=== PATIENT | female | born 1960 | race Caucasian/White ===

== ENCOUNTER 2016-10-05 10:37 | Emergency (ER) | payer BC ==
[~2016-10-05] VITALS: Ht 157.5 cm; Wt 78.0 kg
[2016-10-05 10:41] VITALS: Ht 157.5 cm; Wt 78.0 kg
[2016-10-05] MEDS ORDERED: METOCLOPRAMIDE 10 MG INJ IV STA (11:07)
[2016-10-05] MEDS ORDERED: DIPHENHYDRAMINE 50 MG INJ IV ONE (11:30)
[2016-10-05 11:48] LABS: ADD UMIC NO; UR ASCORBIC ACID NEGATIVE (NEGATIVE); UR BILIRUBIN (Dip) NEGATIVE (NEGATIVE); UR BLOOD (Dip) NEGATIVE (NEGATIVE); UR CLARITY CLEAR (CLEAR); UR COLOR STRAW (YELLOW); UR GLUCOSE (Dip) NEGATIVE (NEGATIVE); UR KETONES (Dip) NEGATIVE (NEGATIVE); UR LEUKOCYTE ESTERASE (Dip) NEGATIVE Leu/ul (NEGATIVE); UR NITRITE (Dip) NEGATIVE (NEGATIVE); UR SPECIFIC GRAVITY (Dip) 1.008 (1.003-1.030); UR TOTAL PROTEIN (Dip) NEGATIVE (NEGATIVE); UR UROBILINOGEN (Dip) NEGATIVE (NEGATIVE)
[2016-10-05 12:01] LABS: ALANINE AMINOTRANSFERASE 33 IU/L (13-69); ALBUMIN/GLOBULIN RATIO 1.51; ALKALINE PHOSPHATASE 76 IU/L (42-121); ANION GAP 14 (8-16); ASPARTATE AMINO TRANSFERASE 19 IU/L (15-46); BILIRUBIN,INDIRECT 0.4 mg/dl (0-1.1); BILIRUBIN,TOTAL 0.4 mg/dl (0.2-1.3); BLOOD UREA NITROGEN 10 mg/dl (7-20); CALCIUM 9.6 mg/dl (8.4-10.2); CARBON DIOXIDE 31 mmol/L (21-31); CHLORIDE 101 mmol/L (97-110); CREATININE 0.68 mg/dl (0.44-1.00); GLUCOSE 95 mg/dl (70-220); POTASSIUM 4.8 mmol/L (3.5-5.1); SODIUM 141 mmol/L (135-144); TOTAL PROTEIN 8.3 g/dl (6.1-8.1)
--- NOTE | 2016-10-05 12:01 | RADRPT ---
PROCEDURE: XR Chest. CLINICAL INDICATION: SOB TECHNIQUE: Two frontal views of the chest were obtained COMPARISON: Chest x-ray 08/04/2014 FINDINGS: The heart and mediastinum are within normal limits. The lungs are clear. There is no pleural effusion or pneumothorax. IMPRESSION: No evidence of an acute cardiopulmonary process. No significant change compared to prior chest x-ra y of 08/04/2014. RPTAT: EE Physician Stella Date Time Electronically viewed and signed by Clotilde Mcniar Physician on 10/05/2016 12:01 RC/
[2016-10-05 12:07] LABS: BASOPHIL # 0.1 10^3/ul (0.0-0.1); EOSINOPHILS # 0.1 10^3/ul (0.0-0.5); EOSINOPHILS % 1.1 % (0.0-7.0); HEMATOCRIT 45.3 % (37.0-47.0); HEMOGLOBIN 14.8 g/dl (12.0-16.0); LYMPHOCYTES # 2.3 10^3/ul (0.8-2.9); LYMPHOCYTES % 32.1 % (15.0-51.0); MEAN CORPUSCULAR HEMOGLOBIN 28.9 pg (29.0-33.0); MEAN CORPUSCULAR HGB CONC 32.7 g/dl (32.0-37.0); MEAN CORPUSCULAR VOLUME 88.5 fl (82.0-101.0); MEAN PLATELET VOLUME 11.2 fl (7.4-10.4); MONOCYTE # 0.3 10^3/ul (0.3-0.9); MONOCYTES % 4.2 % (0.0-11.0); NEUTROPHILS % 61.1 % (39.0-77.0); PLATELET COUNT 246 10^3/UL (140-415); RED BLOOD COUNT 5.12 10^6/ul (4.20-5.40); RED CELL DISTRIBUTION WIDTH 13.3 % (11.5-14.5); WHITE BLOOD COUNT 7.3 10^3/ul (4.8-10.8)
--- NOTE | 2016-10-05 12:07 | RADRPT ---
PROCEDURE: CT Brain without contrast. CLINICAL INDICATION: Headaches TECHNIQUE: CT scan of the brain was performed on a multidetector high-resolution CT scan. Axial im aging was obtained of the brain without contrast administration. Coronal and sagittal reformatted i mages were obtained from the axial source images. Standard CT scan of the head without contrast prot ocols were performed. The total exam CTDI equals 44.58 mGy and the total exam DLP equals 630.2 mGy-cm. One or more of the following dose reduction techniques were used: - Automated exposure control. - Adjustment of the mA and/or kV according to patient size. Use of iterative reconstruction technique. COMPARISON: None. FINDINGS: The ventricular system and peripheral CSF spaces are unremarkable. Negative for intracranial masses hemorrhages or midline shift. Foote-white matter junction is unremarkable. The bones of the calvar ium are intact. The paranasal sinuses and mastoids visualized are unremarkable. IMPRESSION: No evidence of intracranial masses hemorrhages or midline shift. RPTAT:AAJJ Physician Saranya Date Time Electronically viewed and signed by Physician Saranya on 10/05/2016 12:06 BM/
[2016-10-05 12:11] LABS: TROPONIN-I < 0.012 ng/ml (0.00-0.12)
[2016-10-05] MEDS ORDERED: ACET325T33 PO (12:15)
--- NOTE | 2016-10-05 14:26 | ERD ---
ER Documentation Chief Complaint Date/Time DATE: 10/05/16 TIME: 14:08 Chief Complaint lucio, thinks has htn, wants to have check up HPI 55-year-old female with history of migraines presents to the emergency department complaining of a global moderate headache for the past couple days, patient admits to photophobia and nausea. Denies neurological or vision changes. Patient states that she took ibuprofen last night without any relief. Patient thinks that she has high blood pressure and wants to get everything checked up ROS All systems reviewed and are negative except as per history of present illness. Medications Home Meds Active Scripts Acetaminophen* (Tylenol*) 325 Mg Tablet, 2 TAB PO Q6 Y for PAIN AND OR ELEVATED TEMP, #20 TAB Prov:GARCÍA ABRAMS PA-C 10/05/16 Allergies Allergies: Coded Allergies: No Known Allergy (Unverified , 08/04/14) Physical Exam Vitals Vital Signs Date Time Temp Pulse Resp B/P Pulse Ox O2 Delivery O2 Flow Rate FiO2 10/05/16 10:41 98.6 78 18 109/69 9 Physical Exam GENERAL: well-developed/well-nourished, in no apparent distress, non-toxic appearing HENT: NC/AT, bilateral tympanic membrane is normal with good cone of light, nares patent, oropharynx clear without exudates EYES: Conjunctiva normal, PERRLA, EOMI, no nystagmus noted NECK: Supple, no lymphadenopathy PULM: CTA bilaterally, no rales, rhonchi, or wheezing heard CV: Normal S1S2, RRR, good capillary refill GI: Soft, non-distended, normal bowel sounds, non-tender BACK: No midline tenderness, no masses, No CVAT EXT: No clubbing, cyanosis, or edema NEURO: Alert and orientated to person, place, and time. CN II-IIX intact. Gait and coordination were normal. Hand lead sales consultant strength were equal and within normal limits SKIN: Intact, normal turgor PSYCH: Normal mood and mentation, patient denied SI Result Diagram: 10/05/16 1127 10/05/16 1127 Results 24 hrs Laboratory Tests Test 10/05/16 11:20 10/05/16 11:27 Urine Color STRAW Urine Clarity CLEAR Urine pH 7.0 Urine Specific [place] 1.008 Urine Ketones NEGATIVEmg/dL Urine Nitrite NEGATIVEmg/dL Urine Bilirubin NEGATIVEmg/dL Urine Urobilinogen NEGATIVEmg/dL Urine Leukocyte Esterase NEGATIVELeu/ul Urine Hemoglobin NEGATIVEmg/dL Urine Glucose NEGATIVEmg/dL Urine Total Protein NEGATIVEmg/dl White Blood Count 7.310^3/ul Red Blood Count 5.1210^6/ul Hemoglobin 14.8g/dl Hematocrit 45.3% Mean Corpuscular Volume 88.5fl Mean Corpuscular Hemoglobin 28.9pg Mean Corpuscular Hemoglobin Concent 32.7g/dl Red Cell Distribution Width 13.3% Platelet Count 25976^3/UL Mean Platelet Volume 11.2fl Neutrophils % 61.1% Lymphocytes % 32.1% Monocytes % 4.2% Eosinophils % 1.1% Basophils % 1.0% Nucleated Red Blood Cells % 0.0/100WBC Neutrophils # (Manual) 410^3/ul Lymphocytes # 2.310^3/ul Monocytes # 0.310^3/ul Eosinophils # 0.110^3/ul Basophils # 0.110^3/ul Nucleated Red Blood Cells # 0.010^3/ul Sodium Level 141mmol/L Potassium Level 4.8mmol/L Chloride Level 101mmol/L Carbon Dioxide Level 31mmol/L Anion Gap 14 Blood Urea Nitrogen 10mg/dl Creatinine 0.68mg/dl Glucose Level 95mg/dl Calcium Level 9.6mg/dl Total Bilirubin 0.4mg/dl Direct Bilirubin 0.00mg/dl Indirect Bilirubin 0.4mg/dl Aspartate Amino Transf (AST/SGOT) 19IU/L Alanine Aminotransferase (ALT/SGPT) 33IU/L Alkaline Phosphatase 76IU/L Troponin I < 0.012ng/ml Total Protein 8.3g/dl Albumin 5.0g/dl Globulin 3.30g/dl Albumin/Globulin Ratio 1.51 Current Medications Medications (Trade) Dose Ordered Sig/Chidi Route PRN Reason Start Time Stop Time Status Last Admin Dose Admin Diphenhydramine HCl (Benadryl) 50 mg ONCE ONCE IV 10/05/16 11:30 10/05/16 11:31 DC 10/05/16 11:33 Metoclopramide HCl (Reglan) 10 mg ONCE STAT IV 10/05/16 11:07 10/05/16 11:13 DC 10/05/16 11:33 Procedures/MDM MDM: 55-year-old female presents with headache. My differential diagnoses include tension, migraine, and cluster headache, overuse medication headache, subarachnoid hemorrhage, meningitis, stroke. Pain relief was given in the ED with some improvement. Neurology exam was normal, CT scan was done did not show any evidence of acute intracranial pathology. IV access established, Lab work was drawn. CBC did not show any evidence of leukocytosis or anemia. CMP did not show any evidence of renal, liver, or electrolyte abnormalities.. UA did not show any evidence of hemoglobin or urinary tract infection. Troponin was negative. EKG did not show any evidence of STEMI. Patient's blood pressure was within normal limits. Patient was given Benadryl and Reglan and she had improvement in symptoms. DISPOSITION: hemodynamically stable and neurovascularly intact. Prescriptions were given. Discussed to follow up with a primary care physician in the next couple days. Return to the ER if condition worsens or not improving as expected. Patient agreed and understood this plan. EKG: read and signed off by myself and Dr Cade Rate/Rhythm: [Normal Sinus Rhythm at 67bpm] QRS, ST, T-waves: [No changes consistent w/ acute ischemia] Impression: [No evidence of ischemia or arrhythmia] Departure Diagnosis: Primary Impression: Headache Condition: Stable Patient Instructions: Self-Care for Headaches Referrals: DOCTOR,NOT ON STAFF (PCP) Additional Instructions: FOLLOW UP WITH YOUR PRIMARY CARE PHYSICIAN TOMORROW.Return to this facility if you are not improving as expected. Take all medicines as directed. Return to this facility if you are not improving as expected. GARCÍA ABRAMS PA-C Oct 05, 2016 14:24
== END 2016-10-05 12:48 | disposition home or self-care (01) ==
LOC: FTE 10:37
DX: R51 Headache (principal); R06.02 Shortness of breath
CPT/HCPCS: 36415; 70450; 71010; 80053; 81003; 84484; 85025; 93005; 96374; 96375; 99285; J1200; J2765

== ENCOUNTER 2017-03-01 12:06 | Emergency (ER) | END 2017-03-01 12:32 | disposition home or self-care (01) ==

== ENCOUNTER 2018-06-21 11:36 | Emergency (ER) | payer SELFPAY ==
[~2018-06-21] VITALS: Ht 160 cm; Wt 60.0 kg
[~2018-06-21 11:36] MED LIST: ACET325T33 PO; D-ME473S2 PO; IBUP800T48 PO
[2018-06-21 11:40] VITALS: BP 125/68; PULSE 86; RESP 18; Ht 160 cm; Wt 60.0 kg
== END 2018-06-21 16:34 | disposition left against medical advice (07) ==
LOC: E/R 11:36
DX: Z53.21 Procedure and treatment not carried out due to patient leaving prior to being seen by health care provider (principal)